=== PATIENT | male | born 1965 | race Caucasian/White ===

== ENCOUNTER 2020-11-12 11:23 | Emergency (ER) | payer MEDICAID ==
[~2020-11-12] VITALS: Ht 177.8 cm; Wt 70.3 kg
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
--- NOTE | 2020-11-12 13:38 | NUR ---
Patient discharged to home in stable condition. Written and verbal after care instructions given. Patient verbalizes understanding of instruction.
[2020-11-12 13:39] VITALS: BP 131/75
== END 2020-11-12 13:39 | disposition home or self-care (01) ==
LOC: ER 11:25 → EDSEX 11:25 → ER 13:39
DX: Z77.098 Contact with and (suspected) exposure to other hazardous, chiefly nonmedicinal, chemicals (principal)

== ENCOUNTER 2022-03-11 08:02 | Emergency (ER) | payer MEDICAID ==
[~2022-03-11] VITALS: Ht 185.4 cm; Wt 81.6 kg
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
[2022-03-11] MEDS ORDERED: IV NS 0.9% 1,000 ML BAG IV ONE (09:00)
[2022-03-11] MEDS ORDERED: PIPERACILLIN /TAZOBACTAM 3.375 G in IV D5W 50 ML IV ONE (09:00)
--- NOTE | 2022-03-11 09:15 | NUR ---
IV ESTABLISHED L AC 20G. LABS AND CULUTRES DRAWN AND COLLECTED AND BEDSIDE.
[2022-03-11 09:27] LABS: BASOPHILS % (AUTO) 0.2 % (0.0-2.0); EOSINOPHILS % (AUTO) 0.6 % (0.0-6.0); HEMATOCRIT 46 % (39-51); HEMOGLOBIN 14.7 g/dL (13.5-17.5); LYMPHOCYTES # (AUTO) 0.8 K/uL (0.8-4.8); LYMPHOCYTES % (AUTO) 9.6 % (20.0-44.0); MEAN CORPUSCULAR HGB CONC 32 g/dl (31.0-36.0); MEAN CORPUSCULAR VOLUME 89 fL (80-96); MONOCYTES # (AUTO) 0.6 K/uL (0.1-1.30); NEUTROPHILS # (AUTO) 6.7 K/uL (1.8-8.9); NEUTROPHILS % (AUTO) 82.6 % (43.0-81.0); PLATELET COUNT (AUTO) 326 K/uL (150-450); RED BLOOD CELL COUNT(AUTO) 5.17 MIL/uL (4.5-6.0); WHITE BLOOD COUNT (AUTO) 8.2 K/uL (4.3-11.0)
--- NOTE | 2022-03-11 09:30 | NUR ---
COVID TEST AND WOUND CULTURE COLLECTED AND SENT
[2022-03-11 09:46] LABS: CALCIUM, SERUM 9.2 mg/dL (8.5-10.1); CREATININE 0.9 mg/dL (0.6-1.3); POTASSIUM 3.4 mmol/L (3.5-5.1)
[2022-03-11 09:53] LABS: ALBUMIN 3.4 g/dL (3.4-5.0); BILIRUBIN,DIRECT 0.2 mg/dL (0.0-0.2); BILIRUBIN,TOTAL 0.6 mg/dL (0.2-1.0); TOTAL PROTEIN, SERUM 8.7 g/dL (6.4-8.2)
--- NOTE | 2022-03-11 10:10 | NUR ---
PT TAKEN TO CT VIA [facility]
[2022-03-11] MEDS ORDERED: IOHEXOL-300 100 ML VIAL IV ONE (10:14)
[2022-03-11] MEDS ORDERED: IV NS 0.9% 250 ML IV ONE (10:14)
--- NOTE | 2022-03-11 14:19 | NUR ---
[facility] [phone] NO BEDS
--- NOTE | 2022-03-11 14:24 | NUR ---
SPOKE WITH RAND FERNANDEZ FROM [facility], THEY ARE AT MAX CAPACITY. ASKED TO FAX CLINICALS TO [phone]
--- NOTE | 2022-03-11 14:44 | NUR ---
[place] [phone] WITH [facility] ASKED CLINICALS TO BE FAXED TO [phone]
--- NOTE | 2022-03-11 18:10 | NUR ---
Juliano todd in EDM - 03/11/22 at 1811 by MISAEL SPOKE WITH RAND FERNANDEZ FROM [facility], THEY ARE AT FULL CAPACITY AND REQUESTED FILM OR LIVE IMAGES TO BE SENT OVER.
--- NOTE | 2022-03-11 18:11 | NUR ---
SPOKE WITH RAND FERNANDEZ FROM [facility], THEY ARE AT FULL CAPACITY AND REQUESTED FILM AND/OR LIVE IMAGES TO BE SENT OVER.
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
[2022-03-11 21:13] VITALS: BP 123/82
== END 2022-03-11 20:30 | disposition left against medical advice (07) ==
LOC: ER 09:12
DX: H60.21 Malignant otitis externa, right ear (principal); H66.91 Otitis media, unspecified, right ear; H72.91 Unspecified perforation of tympanic membrane, right ear; K11.20 Sialoadenitis, unspecified; L02.01 Cutaneous abscess of face; Z20.822 Contact with and (suspected) exposure to COVID-19; F17.210 Nicotine dependence, cigarettes, uncomplicated; Z59.00 Homelessness unspecified
CPT/HCPCS: 99291; 96365; 70487; 87426; 85025; 80048; 83605; 80076; 36415; 87081; 87040 ×2; 87070; J2543; J7060; J7050; Q9967; C9803